=== PATIENT | male | born 1980 | race Hispanic/Latino ===

== ENCOUNTER 2017-10-26 19:53 | Emergency (ER) | payer SELFPAY ==
[~2017-10-26] VITALS: Ht 160 cm; Wt 92.8 kg
[~2017-10-26 19:53] MED LIST: NO
[2017-10-26] MEDS ORDERED: BENADRYL 50MG C50 MG PO (21:39)
[2017-10-26] MEDS ORDERED: PEPCID20 MG PO (21:39)
[2017-10-26] MEDS ORDERED: MEDDOSEPAK PO (21:39)
[2017-10-26 22:25] VITALS: BP 120/80
== END 2017-10-26 22:25 | disposition home or self-care (01) | DRG 916 ==
LOC: ED 19:53
DX: T78.40XA Allergy, unspecified, initial encounter (principal); X58.XXXA Exposure to other specified factors, initial encounter